=== PATIENT | male | born 1995 | race Caucasian/White ===

== ENCOUNTER → 2020-08-13 | Outpatient (CLI) | payer OTHER ==
--- NOTE | 2020-08-14 18:44 | REPVR ---
PROCEDURE INFORMATION: Exam: MR Head Without Contrast Exam date and time: 08/13/2020 2:32 PM Age: 24 years old Clinical indication: Pain; Headache not specified; Additional info: Personal history of traumatic brain injury TECHNIQUE: Imaging protocol: MR of the head without contrast. COMPARISON: CT Head without contrast 09/05/2013 6:04 PM FINDINGS: No abnormal restriction of diffusion to indicate acute CVA. Midline structures and cerebellar tonsillar position appear normal. Ventricles, cisterns and sulci are symmetric and normal for age. No intracranial mass, midline shift or abnormal extra-axial fluid. No acute intracranial hemorrhage. No abnormal white matter signal on FLAIR and T2 sequences. Optic chiasm and pituitary infundibulum appear normal. Normal vascular flow voids in major intracranial arteries and dural venous sinuses. Paranasal sinuses are normally aerated. Mastoid air cells are normally aerated. Optic globes and orbits are unremarkable. IMPRESSION: Unremarkable noncontrast MRI of the brain. Electronically signed by: Yakov Choudhary On 08/14/2020 18:44:24 PM
== END ==
LOC: M RAD 13:43
PROVIDERS: ATTEND Physician Assistant
DX: Z87.820 Personal history of traumatic brain injury (principal)

== ENCOUNTER → 2020-09-16 | Outpatient (CLI) | payer OTHER ==
--- NOTE | 2020-09-19 13:04 | SLEEPHOME ---
DATE: 09/16/2020 ORDERED BY: MENG [facility] home sleep testing was performed due to concern for the obstructive sleep apnea syndrome. For testing, a nocturnal T3 respiratory monitoring device was used. Continuous record was made of pulse, oxygen saturation, air flow, chest and abdominal strain, and body position. Nine hours and 59 minutes of data were reviewed. There were 7 hours and 32 minutes marked as time in bed. During the interval marked time in bed, there were 52 respiratory events identified of 10 seconds in duration or greater for a respiratory event index of 6.9. The events were primarily obstructive. However 14 mixed and central apneas were also seen. Baseline pulse rate was 67. Pulse rate ranged 46 to 178. Baseline saturation was 97%. Saturations fell to 87%. Testing was performed in both the supine and nonsupine positions. IMPRESSION: Abnormal home sleep testing with repetitive respiratory events and oxygen desaturations to 87% with a respiratory event index of 6.9 is consistent with the obstructive sleep apnea syndrome. RECOMMENDATION: The patient should be encouraged to undergo a formal sleep evaluation.
== END ==
LOC: M SLEEP HO 09:58
PROVIDERS: ATTEND Physician Assistant
DX: G47.33 Obstructive sleep apnea (adult) (pediatric) (principal); G47.31 Primary central sleep apnea

== ENCOUNTER → 2020-10-31 | Outpatient (CLI) | payer OTHER | LOC: M SLEEP 20:00 | PROVIDERS: ATTEND Internal Medicine Pulmonary Disease | DX: R06.83 Snoring (principal) ==

== ENCOUNTER → 2020-11-25 | Outpatient (REF) | payer OTHER ==
[2020-11-25 18:35] LABS: APPEARANCE, URINE CLEAR (CLEAR); BACTERIA, URINE AUTO NEGATIVE (NEGATIVE); BILIRUBIN, URINE AUTO NEGATIVE (NEGATIVE); BLOOD, URINE BLOOD NEGATIVE (NEGATIVE); COLOR, URINE COLORLESS (YELLOW); GLUCOSE, URINE (UA) AUTO NEGATIVE (NEGATIVE); KETONE, URINE AUTO NEGATIVE (NEGATIVE); LEUKOCYTE ESTERASE, URINE AUTO NEGATIVE (NEGATIVE); NITRITE, URINE AUTO NEGATIVE (NEGATIVE); PROTEIN, URINE AUTO NEGATIVE (NEGATIVE); RBC, URINE AUTO 0 /HPF (0-3); SPECIFIC GRAVITY URINE AUTO 1.004 (1.002-1.035); SQUAMOUS EPITHELIAL CELL UR AU 0 /HPF (0-6); UROBILINOGEN, URINE AUTO 0.2 mg/dL (0.0-2.0); WBC, URINE AUTO 0 /HPF (0-3)
== END ==
LOC: M SMT 17:37
PROVIDERS: ATTEND Urology
DX: R39.198 Other difficulties with micturition (principal)

== ENCOUNTER → 2021-02-10 | Outpatient (CLI) | payer OTHER | LOC: M LABSMTC 11:33 | PROVIDERS: ATTEND Anesthesiology | DX: Z01.812 Encounter for preprocedural laboratory examination (principal) ==

== ENCOUNTER 2021-02-15 06:01 | Day surgery (SDC) | payer OTHER ==
[~2021-02-15] VITALS: Ht 175.3 cm; Wt 88.5 kg
[~2021-02-15 06:01] MED LIST: LR 1,000 ML IV ONE; LevoFLOXacin IV 500 MG in IV 1 EA IV ONE
--- OUTSIDE RECORDS SUMMARY | 2021-02-15 06:04 | CCD | Continuity of Care Document ---
Author Author Avelino THOMPSON N.P. Organization Unknown Address [address] [place] [address] Phone [phone] Care Team Providers Care Barrel Drainer Name Role Phone AUTM Unavailable Adan Coyle AUTM [phone] AUTM Unavailable Problems Active Problems Provider Date Hematoma of musa Villa MD Onset: 05/12/2012 Allergic asthma without status asthmaticus Leigha knox M.D. Onset: 03/10/2012 Gastroesophageal reflux disease Daniel Lux Onset: 03/10/2012 Difficulty breathing Leigha Ramsey M.D. Onset: Cough Leigha Ramsey M.D. Onset: 12/2011 Social History Type Date Description Comments Sex Unknown ETOH Use Currently consumes alcohol 15-20 PER WEEK Tobacco Use Start: Unknown Patient is a current smoker, smo kes some days SOCIAL WHEN DRINKING Recreational Drug Use Regular[facility] Smoking Status Reviewed: 02/10/21 Patient is a current smoker, smokes some days SOCIAL WHEN DRINKING Allergies and adverse reactions Active Allergies Criticality Reaction | Severity Comments Date Penicillin Unable to assess criticality rash 03/10/2012 Cephalosporins Unable to assess criticality Anaphylaxis 03/10/2012 Zithromax Unable to assess criticality Allergic asthma 03/10/2012 Amoxicillin Unable to assess criticality RASH 01/20/2020 Medications Active Medications SIG Qnty Indications Ordering Provide r Date Symbicort 160-4.5mcg/Act Aerosol 2 puff twice a day. Use with spacer 10.200gm Gilles Chacon MD 10/18/2020 Proventil HFA 108(90Base) mcg/Act Aerosol 2 puffs q4h prn with spacer 6.700gm Gilles Chacon MD 10/18/2020 Hydroxyzine HCL 10mg/5ML Syrup as needed Unknown Immunizations CPT Code Status Date Vaccine Lot # [id number] Given 01/09/2012 Influenza Virus Split 3 Yrs And Above For Intramuscular Use Vital Signs Date Vital Result Comment 02/10/2021 7:14am BP Systolic 116 mmHg BP Diastolic 72 mmHg Heart Rate 86 /min O2 % BldC Oximetry 98 % Height 68.5 inches 5'8.50" Weight 193.38 lb BMI (Body Mass Index) 29.0 kg/m2 [place] Body Weight 154 lb Weight 87.715 kg BSA (Body Surface Area) 2.03 m2 10/18/2020 10:11am BP Systolic 120 mmHg BP Diastolic 70 mmHg Heart Rate 80 /min O2 % BldC Oximetry 97 % Room Air Height 68.5 inches 5'8.50" Weight 185.00 lb BMI (Body Mass Index) 27.7 kg/m2 [place] Body Weight 154 lb Weight 83.916 kg BSA (Body Surface Area) 1.99 m2 Results Description No Information Available Procedures Date Code Description Status 02/10/2021 79284 Office/Outpatient Established Mo d MDM 30-39 Min Completed 11/11/2020 23711 Diffusing Capacity Completed 11/11/2020 73958 Plethysmography Determination Chasidy ng Volumes & Per Airway Resist Completed 11/11/2020 08263 Bronchospasm Evaluation Complete d 10/18/2020 26102 Office/Outpatient New Moderate M DM 45-59 Minutes Completed Medical Devices Description No Information Available Encounters Type Date Location Provider Dx Diagnosis Office Visit 02/10/2021 7:15a [facility] Tien Thompson, N.P. J45.30 Mild persistent asthma, uncomplicated G47.33 Obstructive sleep apnea (magi lt) (pediatric) Z91.19 Patient's noncompliance w ot h medical treatment and regimen Office Visit 10/18/2020 10:00a [facility] Tyrell Chacon MD G47.33 Obstructive sleep apnea (adult) (pediatr ic) J45.30 Mild persistent asthma, unco mplicated Assessments Date Code Description Provider 02/10/2021 J45.30 Mild persistent asthma, uncompli cated Clare Thompson, N.P. 02/10/2021 G47.33 Obstructive sleep apnea (adult) (pediatric) Clare Thompson N.PXiomy 02/10/2021 Z91.19 Patient's noncomplia nce with other medical treatment and regimen Clare Thompson N.P. 11/11/2020 J45.30 Mild persistent asthma, uncompli cated Pulmonary Lab 10/18/2020 G47.33 Obstructive sleep apnea (adult) (pediatric) Gilles Chacon MD 10/18/2020 J45.30 Mild persistent asthma, uncompli cated Gilles Chacon MD Plan of Treatment Future Appointment(s):* 04/13/2021 2:30 pm - Gilles Chacon MD at [facility] 02/10/2021 - Clare Thompson, N.P.* J45.30 Mild persistent asthma, uncomplicated * G47.33 Obstructive sleep apnea (adult) (pediatric) * Z91.19 Patient's noncompliance with other medical treatment and regimen * * New Labs:* FVL/Otto, Scheduled: 04/13/21 * Follow up:* 1. Follow up in 6-8 weeks time with fvl/spirometry. 30 MINUTE SLOT Functional Status Description No Information Available Mental Status Description No Information Available Referrals Refer to Dr Reason for Referral Status Appt Date Gilles Chacon M.D. PER [facility] [id number] [place] 10/31/[address] [place] [address] [phone] Gilles Chacon M.D. + HST Scheduled [address] [id number] [phone]
--- OUTSIDE RECORDS SUMMARY | 2021-02-15 06:05 | CCD | Continuity of Care Document ---
Author Author Avelino EL Organization Unknown Address [place] [address] Phone [phone] Care Team Providers Care Livestock Breeder Name Role Phone Jennifer Valdovinos D.O. AUTM [phone] Gilles Chacon MD AUTM [phone] Kenneth Colin MD AUTM [phone] Problems Active Problems Provider Date Generalized anxiety disorder MENG Pearson Onset: 07/30 Social History Type Date Description Comments Sex Unknown ETOH Use Currently consumes alcohol 1-2 e very other day, 10 per week Tobacco Use Start: Unknown Patient has never smoked Recreational Drug Use Denies Drug Use Exercise Type/Frequency Exercises regularly Sun Exposure Uses sunscreen Seat Belt/Car Seat Always uses seat belt Allergies and adverse reactions Active Allergies Criticality Reaction | Severity Comments Date Penicillin Unable to assess criticality Hives, Swel ling of eyelid, Tongue swelling 07/25/2020 Cephalosporins Unable to assess criticality Hives 07/25/2020 Zithromax Unable to assess criticality Hives 07/25/2020 Medications Active Medications SIG Qnty Indications Ordering Provide r Date Epinephrine 0.3mg/0. 3ML Solution Auto-Inject use as directed for anaphylaxis reaction 2units Z91.030 Jennifer Valdovinos D.OXiomy 10/13/2020 Hydroxyzine HCL 10mg Tablets 1 tab by mouth three times a day as needed for anxiety Un known Sildenafil Citrate 100mg Tablets take one tablet by mouth one hour prior to sexual activity 6tabs Jennifer Valdovinos D.OXiomy Immunizations Description No Information Available Vital Signs Date Vital Result Comment 10/13/2020 9:07am BP Systolic 132 mmHg BP Diastolic 70 mmHg Height 69.6 inches 5'9.60" Weight 184.00 lb BMI (Body Mass Index) 26.7 kg/m2 Heart Rate 74 /min Respiratory Rate 18 /min Body Temperature 97.2 F O2 % BldC Oximetry 99 % [place] Body Weight 160 lb 08/10/2020 9:54am BP Systolic 134 mmHg BP Diastolic 76 mmHg Height 69.6 inches 5'9.60" Weight 186.25 lb BMI (Body Mass Index) 27.0 kg/m2 Heart Rate 93 /min Respiratory Rate 18 /min Body Temperature 98.3 F O2 % BldC Oximetry 96 % [place] Body Weight 160 lb Results Test Acquired Date Facility Test Result H/L Range Note Coronavirus 2019 Nasopharygeal 02/10/2021 [facility] Outpa tient Testing (Registration) [address] [place] [address] [phone] Coronavirus 2019 Nasopharygeal ASSAY INFORMATIO <SEE N OTE> 1 1 ASSAY INFORMATION: Real Time RT-PCR NOTE: The COVID-19 assay has been cleared by the U.S. Food and Drug Administration under the Emergency Use Authorization (EUA). [facility] and [email or web address] are designated as high complexity laboratories by the Clinical Laboratory Improvement Amendments of 1988(CLIA) and are qualified to perform this test. Not Detected Procedures Date Code Description Status 10/13/2020 52394 Office/Outpatient Established Mo d MDM 30-39 Min Completed Medical Devices Description No Information Available Encounters Type Date Location Provider Dx Diagnosis Office Visit 10/13/2020 9:00a [facility] MENG Pearson F41.1 Generalized anxiety disorder R06.83 Snoring Z91.030 Bee allergy status R39.13 Splitting of urinary stream Assessments Date Code Description Provider 10/13/2020 F41.1 Generalized anxiety disorder Gallo MENG Frias 10/13/2020 R06.83 Snoring MENG Pearson 10/13/2020 Z91.030 Bee allergy status MENG Hammond 10/13/2020 R39.13 Splitting of urinary stream Bayron MENG Olea Plan of Treatment Future Appointment(s):* 04/12/2021 9:40 am - MENG Pearson at [facility] Functional Status Description No Information Available Mental Status Description No Information Available Referrals Refer to Dr Reason for Referral Status Appt Date Kenneth Colin MD has incomplete empty ing, splitting of urinary stream, slight dribbling, and ED issues. Sent 11/04/2020 [address] [place] [facility] [address] [place], [place] [id number] [phone] Gilles Chacon MD Tristan has hypersomnia, mil d sleep apnea and snoring. Home Sleep study with AHI of 6. Snoring 22%. Please evaluate and treat. Closed [facility] [address] [place], [place] [id number] [phone]
--- OUTSIDE RECORDS SUMMARY | 2021-02-15 06:05 | CCD ---
Author Author [facility] Organization [facility] Address Unknown Phone Unavailable Care Team Providers Care Patient Monitor Name Role Phone Abraham DIAZ MD Unavailable Unavailable Abraham DIAZ MD Unavailable Unavailable Abraham DIAZ MD Unavailable Unavailable Abraham DIAZ MD Unavailable Unavailable Abraham DIAZ MD Unavailable Unavailable Abraham DIAZ MD Unavailable Unavailable Abraham DIAZ MD Unavailable Unavailable Abraham DIAZ MD Unavailable Unavailable Abraham DIAZ MD Unavailable Unavailable Abraham DIAZ MD Unavailable Unavailable Abraham DIAZ MD Unavailable Unavailable Abraham DIAZ MD Unavailable Unavailable Abraham DIAZ MD Unavailable Unavailable Abraham DIAZ MD Unavailable Unavailable Abraham DIAZ MD Unavailable Unavailable Abraham DIAZ MD Unavailable Unavailable Abraham DIAZ MD Unavailable Unavailable Abraham DIAZ MD Unavailable Unavailable Abraham DIAZ MD Unavailable Unavailable Abraham DIAZ MD Unavailable Unavailable Abraham DIAZ MD Unavailable Unavailable Abraham DIAZ MD Unavailable Unavailable Abraham DIAZ MD Unavailable Unavailable Abraham DIAZ MD Unavailable Unavailable Abraham DIAZ MD Unavailable Unavailable Abraham DIAZ MD Unavailable Unavailable Abraham DIAZ MD Unavailable Unavailable Abraham DIAZ MD Unavailable Unavailable Abraham DIAZ MD Unavailable Unavailable Abraham DIAZ MD Unavailable Unavailable Abraham DIAZ MD Unavailable Unavailable Abraham DIAZ MD Unavailable Unavailable Abraham DIAZ MD Unavailable Unavailable Abraham DIAZ MD Unavailable Unavailable Abraham DIAZ MD Unavailable Unavailable Abraham DIAZ MD Unavailable Unavailable Abraham DIAZ MD Unavailable Unavailable Abraham DIAZ MD Unavailable Unavailable Abraham DIAZ MD Unavailable Unavailable Abraham DIAZ MD Unavailable Unavailable Abraham DIAZ MD Unavailable Unavailable PORTILLO, SABINA JOSE CLOTH BEAMER-C Unavailable Unavailable PORTILLO, SABINA JOSE CLOTH BEAMER-C Unavailable Unavailable PORTILLO, SABINA JOSE CLOTH BEAMER-C Unavailable Unavailable PORTILLO, SABINA JOSE CLOTH BEAMER-C Unavailable Unavailable PORTILLO, SABINA JOSE CLOTH BEAMER-C Unavailable Unavailable PORTILLO, SABINA JOSE CLOTH BEAMER-C Unavailable Unavailable PORTILLO, SABINA JOSE CLOTH BEAMER-C Unavailable Unavailable PORTILLO, SABINA JOSE CLOTH BEAMER-C Unavailable Unavailable PORTILLO, SABINA JOSE CLOTH BEAMER-C Unavailable Unavailable PORTILLO, SABINA JOSE CLOTH BEAMER-C Unavailable Unavailable PORTILLO, SABINA JOSE CLOTH BEAMER-C Unavailable Unavailable PORTILLO, SABINA JOES CLOTH BEAMER-C Unavailable Unavailable PORTILLO, SABINA JOSE CLOTH BEAMER-C Unavailable Unavailable PORTILLO, SABINA JOSE CLOTH BEAMER-C Unavailable Unavailable PORTILLO, SABINA JOSE CLOTH BEAMER-C Unavailable Unavailable PORTILLO, SABINA JOSE CLOTH BEAMER-C Unavailable Unavailable PORTILLO, SABINA JOSE CLOTH BEAMER-C Unavailable Unavailable O'elsy, A Adan PA Unavailable Unavailable O'elsy, A Adan PA Unavailable Unavailable O'elsy, A Adan PA Unavailable Unavailable O'elsy, A Adan PA Unavailable Unavailable O'elsy, A Adan PA Unavailable Unavailable O'elsy, A Adan PA Unavailable Unavailable O'elsy, A Adan PA Unavailable Unavailable O'elsy, A Adan PA Unavailable Unavailable O'elys, A Adan PA Unavailable Unavailable O'elsy, A Adan PA Unavailable Unavailable O'elsy, A Adan PA Unavailable Unavailable O'elsy, A Adan PA Unavailable Unavailable O'elsy, A Adan PA Unavailable Unavailable O'elsy, A Adan PA Unavailable Unavailable O'elsy, A Adan PA Unavailable Unavailable O'elsy, A Adan PA Unavailable Unavailable O'elsy, A Adan PA Unavailable Unavailable O'elsy, A Adan PA Unavailable Unavailable O'elsy, A Adan PA Unavailable Unavailable O'elsy, A Adan PA Unavailable Unavailable O'elsy, A Adan PA Unavailable Unavailable O'elsy, A Adan PA Unavailable Unavailable O'elsy, A Adan PA Unavailable Unavailable O'elsy, A Adan PA Unavailable Unavailable O'elsy, A Adan PA Unavailable Unavailable O'elsy, A Adan PA Unavailable Unavailable O'elsy, A Adan PA Unavailable Unavailable O'elsy, A Adan PA Unavailable Unavailable O'elsy, A Adan PA Unavailable Unavailable O'elsy, A Adan PA Unavailable Unavailable O'elsy, A Adan PA Unavailable Unavailable O'elsy, A Adan PA Unavailable Unavailable O'elsy, A Adan PA Unavailable Unavailable Abraham DIAZ MD Unavailable Unavailable Abraham DIAZ MD Unavailable Unavailable Abraham DIAZ MD Unavailable Unavailable Abraham DIAZ MD Unavailable Unavailable Abraham DIAZ MD Unavailable Unavailable Abraham DIAZ MD Unavailable Unavailable Abraham DIAZ MD Unavailable Unavailable Abraham DIAZ MD Unavailable Unavailable Abraham DIAZ MD Unavailable Unavailable Abraham DIAZ MD Unavailable Unavailable Abraham DIAZ MD Unavailable Unavailable Abraham DIAZ MD Unavailable Unavailable Abraham DIAZ MD Unavailable Unavailable Abraham DIAZ MD Unavailable Unavailable Abraham DIAZ MD Unavailable Unavailable Abraham DIAZ MD Unavailable Unavailable Abraham DIAZ MD Unavailable Unavailable Abraham DIAZ MD Unavailable Unavailable Abraham DIAZ MD Unavailable Unavailable Abraham DIAZ MD Unavailable Unavailable Abraham DIZA MD Unavailable Unavailable Abraham DIAZ MD Unavailable Unavailable Abraham DIAZ MD Unavailable Unavailable Abraham DIAZ MD Unavailable Unavailable Abraham DIAZ MD Unavailable Unavailable Abraham DIAZ MD Unavailable Unavailable Abraham DIAZ MD Unavailable Unavailable Abraham DIAZ MD Unavailable Unavailable Abraham DIAZ MD Unavailable Unavailable Abraham DIAZ MD Unavailable Unavailable Abraham DIAZ MD Unavailable Unavailable Abraham DIAZ MD Unavailable Unavailable Abraham DIAZ MD Unavailable Unavailable Abraham DIAZ MD Unavailable Unavailable Abraham DIAZ MD Unavailable Unavailable Abraham DIAZ MD Unavailable Unavailable Abraham DIAZ MD Unavailable Unavailable Abraham DIAZ MD Unavailable Unavailable bAraham DIAZ MD Unavailable Unavailable Abraham DIAZ MD Unavailable Unavailable Abraham DIAZ MD Unavailable Unavailable Richard Chacon MD Unavailable Unavailable Richard Chacon MD Unavailable Unavailable Richard Chacon MD Unavailable Unavailable Richard Chacon MD Unavailable Unavailable Richard Chacon MD Unavailable Unavailable Richard Chacon MD Unavailable Unavailable Richard Chacon MD Unavailable Unavailable Richard Chacon MD Unavailable Unavailable Richard Chacon MD Unavailable Unavailable Richard Chacon MD Unavailable Unavailable Richard Chacon MD Unavailable Unavailable Richard Chacon MD Unavailable Unavailable Richard Chacon MD Unavailable Unavailable Richard Chacon MD Unavailable Unavailable Richard Chacon MD Unavailable Unavailable Richard Chacon MD Unavailable Unavailable Richard Chacon MD Unavailable Unavailable Richard Chacon MD Unavailable Unavailable Richard Chacon MD Unavailable Unavailable Richard Chacon MD Unavailable Unavailable Richard Chacon MD Unavailable Unavailable Richard Chacon MD Unavailable Unavailable Richard Chacon MD Unavailable Unavailable Richard Chacon MD Unavailable Unavailable Richard Chacon MD Unavailable Unavailable Richard Chacon MD Unavailable Unavailable Richard Chacon MD Unavailable Unavailable Richard Chacon MD Unavailable Unavailable Richard Chacon MD Unavailable Unavailable Richard Chacon MD Unavailable Unavailable Richard Chacon MD Unavailable Unavailable Richard Chacon MD Unavailable Unavailable Richard Chacon MD Unavailable Unavailable Richard Chacon MD Unavailable Unavailable Richard Chacon MD Unavailable Unavailable Richard Chacon MD Unavailable Unavailable Richard Chacon MD Unavailable Unavailable Richard Chacon MD Unavailable Unavailable Richard Chacon MD Unavailable Unavailable Richard Chacon MD Unavailable Unavailable Richard Chacon MD Unavailable Unavailable Richard Chacon MD Unavailable Unavailable Richard Chacon MD Unavailable Unavailable Richard Chacon MD Unavailable Unavailable Richard Chacon MD Unavailable Unavailable Richard Chacon MD Unavailable Unavailable Richard Chacon MD Unavailable Unavailable Richard Chacon MD Unavailable Unavailable Richard Chacon MD Unavailable Unavailable Richard Chacon MD Unavailable Unavailable Richard Chacon MD Unavailable Unavailable Richard Chacon MD Unavailable Unavailable Richard Chacon MD Unavailable Unavailable Richard Chacon MD Unavailable Unavailable DESJARLAIS, ESHA CONTACT LENS CURVE GRINDER Unavailable Unavailable DESJARLAIS, ESHA CONTACT LENS CURVE GRINDER Unavailable Unavailable DESJARLAIS, ESHA CONTACT LENS CURVE GRINDER Unavailable Unavailable DESJARLAIS, ESHA CONTACT LENS CURVE GRINDER Unavailable Unavailable DESJARLAIS, ESHA CONTACT LENS CURVE GRINDER Unavailable Unavailable DESJARLAIS, ESHA CONTACT LENS CURVE GRINDER Unavailable Unavailable DESJARLAIS, ESHA CONTACT LENS CURVE GRINDER Unavailable Unavailable DESJARLAIS, ESHA CONTACT LENS CURVE GRINDER Unavailable Unavailable DESJARLAIS, ESHA CONTACT LENS CURVE GRINDER Unavailable Unavailable DESJARLAIS, ESHA CONTACT LENS CURVE GRINDER Unavailable Unavailable HICKEYGISELE Unavailable Unavailable Re-disclosure Warning The records that you are about to access may contain information from federally-assisted alcohol or drug abuse programs. If such information is present, then the following federally mandated warning applies: This information has been disclosed to you from records protected by federal confidentiality rules (42 CFR part 2). The federal rules prohibit you from making any further disclosure of this information unless further disclosure is expressly permitted by the written consent of the person to whom it pertains or as otherwise permitted by 42 CFR part 2. A general authorization for the release of medical or other information is NOT sufficient for this purpose. The Federal rules restrict any use of the information to criminally investigate or prosecute any alcohol or drug abuse patient.The records that you are about to access may contain highly sensitive health information, the redisclosure of which is protected by Article 27-F of the [facility] Public Health law. If you continue you may have access to information: Regarding HIV / AIDS; Provided by facilities licensed or operated by the [facility] Office of Mental Health; or Provided by the [facility] Office for People With Developmental Disabilities. If such information is present, then the following [facility] mandated warning applies: This information has been disclosed to you from confidential records which are protected by state law. State law prohibits you from making any further disclosure of this information without the specific written consent of the person to whom it pertains, or as otherwise permitted by law. Any unauthorized further disclosure in violation of state law may result in a fine or penitentiary sentence or both. A general authorization for the release of medical or other information is NOT sufficient authorization for further disc losure. Encounters Encounter Providers Location Date Indications Data Source(s ) Outpatient Attender: JOSE Steiner/Brandie/Bernarda smith 02/10/2021 06:15:00 AM EST [facility] ([facility], ) Outpatient Attender: ABHILASH DIAZ MD [facility] 02/08/2021 10 :07:00 AM [facility] Outpatient Attender: ABHILASH DIAZ MD EM[facility] 02/07/2021 03:37:00 PM EST - 02/07/2021 03:37:00 PM [facility]ital Outpatient [address] [place] [address] 11/25/2020 12:00:00 AM EDT eCW1 ([facility]) Outpatient Attender: Gilles Steiner/Brandie/Jorgito/Shu smith 10/18/2020 10:00:00 AM EDT [facility] ([facility]) Outpatient Attender: Adan FAN [facility] 10/13/2020 09:00:00 AM EDT MEDENT ([facility]) Outpatient Attender: Adan FAN [facility] 08/10/2020 09:00:00 AM EDT MEDENT ([facility]) Outpatient Attender: ESHA WILLSON NP 07/20/2020 10: 40:00 AM [facility] Outpatient Attender: GISELE PELAYO 05/03/2020 10:52:00 AM [facility] Immunizations Vaccine Date Status Description Data Source(s) COVID-19 VACCINE [facility] 04/26/2020 12:00:00 AM EST completed [facility] Vaccine Series Complete: YESThis Data wa s Submitted to [facility] Via [employer]. COVID-19 VACCINE [facility] 04/05/2020 12:00:00 AM EST completed [facility] Vaccine Series Complete: NOThis Data was Submitted to [facility] Via [employer]. Medications Medication Brand Name Start Date Product Form Dose Route Admi nistrative Instructions Pharmacy Instructions Status Indications Reaction Description Data Source(s) 10 mg 01/27/2021 12:00:00 AM EDT tablet 5 TAKE ONE TABLET BY MOUTH EVERY DAY NEEDED 1 HOUR PRIOR TO INTERCOURSE TAKE ONE TABLET BY MOUTH EVERY DAY NEEDED 1 HOUR PRIOR TO INTERCOURSE SOLD: 01/31/2021 [facility] 100 mg 01/20/2021 12:00:00 AM EDT tablet 4 TAKE ONE TABLET BY MOUTH NEEDED 1 HOUR PRIOR TO SEXUAL ACTIVITY TAKE ONE TABLET BY MOUTH NEEDED 1 DAJUAN R PRIOR TO SEXUAL ACTIVITY SOLD: 01/23/2021 [facility] tadalafil 10 MG Oral Tablet [Cialis] Cialis 10 MG Cialis 10 MG 11/25/2020 12:00:00 AM EDT 1.0 {tablet} active Ci trudy 10 MG eCW1 ([facility]) 90 mcg/actuation 10/18/2020 12:00:00 AM EDT HFA aerosol inha ler 8 INHALE 2 PUFFS BY MOUTH EVERY 4 HOURS NEEDED WITH SPACER INHALE 2 PUFFS BY MOUTH EVERY 4 HOURS NEEDED WITH SPACER SOLD: 10/21/2020 [facility] 60 ACTUAT Budesonide 0.16 MG/ACTUAT / fo rmoterol fumarate 0.0045 MG/ACTUAT Metered Dose Inhaler [Symbicort] Symbicort 10/18/2020 12:00:00 AM EDT RESPIRATORY active MEDENT ( [facility], ) 200 ACTUAT Albuterol 0.09 MG/ACTUAT Metered Dose Inhal er [Proventil] Proventil HFA 10/18/2020 12:00:00 AM EDT RESPIRATORY active MED[facility] ([facility], ) 160-4.5 mcg/actuation 10/18/2020 12:00:00 AM EDT HFA aerosol inhaler 10 INHALE 2 PUFFS BY MOUTH TWO TIMES A DAY USE WITH SPACER INHALE 2 PUFFS BY MOUTH TWO TIMES A DAY USE WITH SPACER SOLD: 12/08/2020 [facility] 160-4.5 mcg/actuation 10/18/2020 12:00:00 AM EDT HFA aerosol inhaler 10 INHALE 2 PUFFS BY MOUTH TWO TIMES A DAY USE WITH SPACER INHALE 2 PUFFS BY MOUTH TWO TIMES A DAY USE WITH SPACER SOLD: 10/21/2020 [facility] [id number] 0.3 ML Epinephrine 1 MG/ML Auto-Injector EPINEPHRI NE 10/13/2020 12:00:00 AM EDT auto-injector 2 USE DIRECTED FOR ANAP HYLAXIS REACTION USE DIRECTED FOR ANAPHYLAXIS REACTION SOLD: 10/21/2020 [facility] Epinephrine Epinephrine 10/13/2020 12:00:00 AM EDT active MEDENT ([facility]) 100 mg 09/19/2020 12:00:00 AM EDT tablet 4 TAKE ONE TABLET BY MOUTH ONE HOUR PRIOR TO SEXUAL ACTIVITY TAKE ONE TABLET BY MOUTH ONE HOUR PRIOR TO SEXUAL ACTIVITY SOLD: 09/23/2020 [facility] 5 mg 08/11/2020 12:00:00 AM EDT tablet 2 TAKE 1 TABLET BY MOUTH ONCE THE NIGHT BEFORE MRI AND TAKE 1 TABLET 1 HOUR PRIOR TO MRI MAXIMUM DAILY DOSE = 2 TABLETS TAKE 1 TABLET BY MOUTH ONCE THE NIGHT BE FORE MRI AND TAKE 1 TABLET 1 HOUR PRIOR TO MRI MAXIMUM DAILY DOSE = 2 TABLETS SOLD: 08/12/2020 [facility] Diazepam 5 MG Oral Tablet Diazepam 08/11/2020 12:00:00 AM EDT ORAL completed MEDENT ([facility]) [facility] 08/10/2020 12:00:00 AM EDT ORAL c ompleted MEDENT ([facility]) [facility] Home Sleep Study 08/10/2020 12:00:00 AM EDT completed MEDENT ([facility]) 10 mg 07/20/2020 12:00:00 AM EDT tablet 90 TAKE 1 TABLET BY MOUTH EVERY 8 HOURS NEEDED TAKE 1 TABLET BY MOUTH EVERY 8 HOURS NEEDED SOLD: 021 [facility] 2.5 % 01/16/2020 12:00:00 AM EDT cream with perineal marlee licator 30 APPLY RECTALLY THREE TIMES A DAY APPLY RECTALLY THREE TIMES A DAY SOLD: 01/18/2020 [facility] 2.5 % 01/16/2020 12:00:00 AM EDT cream with perineal marlee licator 84 APPLY RECTALLY THREE TIMES A DAY APPLY RECTALLY THREE TIMES A DAY SOLD: 03/31/2020 [facility] Insurance Providers Payer name Policy type / Coverage type Policy ID Covered alliance party ID Covered alliance party's relationship to liriano Policy Liriano Plan Information [facility] Health Maintenance Organization ([facility]) [id number] Family Dependent [id number] [facility] Health Maintenance Organization ([facility]) [id number] Family Dependent [facility] P [id number] S [id number] [facility] [id number] FA2 [id number] [facility] [id number] FA2 80 [id number] [employer] [place] PPO [id number] FA2 [id number] [facility] PHY [id number] SP [id number] [facility] PHY [id number] SP [id number] [facility] P [id number] S [id number] [employer] [id number] FA2 [id number] [facility] [id number] SP [id number] [facility] [id number] S [id number] [facility] [id number] S [id number] [facility] [id number] SP [id number] Problems, Conditions, and Diagnoses Code Display Name Description Problem Type Effective Dates Data Source(s) N39.0 Urinary tract infection, site not specif ied URINARY TRACT INFECTION, SITE NOT SPECIF Diagnosis 02/07/2021 03:37:00 PM [facility] Z01.818 Encounter for other preprocedural examin ation ENCOUNTER FOR OTHER PREPROCEDURAL EXAMIN Diagnosis 02/07/2021 03:37:00 PM [facility] Z87.448 Personal history of other diseases of ur inary system PERSONAL HISTORY OF OTHER DISEASES OF UR Diagnosis 02/07/2021 03:37:00 PM [facility] R39.198 OTHER DIFFICULTIES WITH MICTURITION OTHER DIFFIC ULTIES WITH MICTURITION Diagnosis 02/07/2021 03:37:00 PM [facility] F32.9 Major depressive disorder, single episod e, unspecified MAJOR DEPRESSIVE DISORDER, SINGLE EPISODE, UNSPECI Diagnosis 07/20/2020 10:40:00 AM [facility] F41.9 Anxiety disorder, unspecified ANXIETY DISORDER, UNSPEC IFIED Diagnosis 07/20/2020 10:40:00 AM [facility] N52.9 Erectile dysfunction Erectile dysfunction Problem 11/25/2020 12:00:00 AM EDT eCW1 ([facility]) R39.198 Other difficulties with micturition Urine stream spray ing Problem 11/25/2020 12:00:00 AM EDT eCW1 ([facility]) F41.1 Generalized anxiety disorder Generalized anxiety disor matias Problem 08/10/2020 12:00:00 AM EDT MEDENT ([facility]) Surgeries/Procedures Procedure Description Date Indications Data Source(s) OFFICE OUTPATIENT VISIT 25 MINUTES 02/10/2021 12:00:00 AM EST MED[facility] ([facility], ) Bronchospasm Evaluation 11/11/2020 12:00:00 AM EDT MED[facility] ([facility]) Plethysmography Determination Lung Volumes & Per Airway Resi st 11/11/2020 12:00:00 AM EDT MEDENT ([facility], ) DIFFUSING CAPACITY 11/11/2020 12:00:00 AM EDT MEDENT ([facility]) OFFICE OUTPATIENT NEW 45 MINUTES 10/18/2020 12:00:00 A M EDT MEDENT ([facility]) OFFICE OUTPATIENT VISIT 25 MINUTES 10/13/2020 12:00:00 AM EDT MEDENT ([facility]) OFFICE OUTPATIENT NEW 45 MINUTES 08/10/2020 12:00:00 A M EDT MEDENT ([facility]) Results ID Date Data Source [id number] 02/10/2021 10:15:00 AM EST MED[facility] ([facility]) Name Value Range Interpretation Code Description Data Oumou rce(s) Supporting Document(s) Coronavirus 2019 Nasopharygeal Laboratory test result [facility] ([facility]) ASSAY INFORMATION: Real Time RT-PCR NOTE: The COVID-19 assay has been cleared by the U.S. Food and Drug Administration under the Emergency Use Authorization (EUA). [facility] are designated as high complexity laboratories by the Clinical Laboratory Improvement Amendments of 1988(CLIA) and are qualified to perform this test. Not Detected ID Date Data Source [id number] 02/10/2021 02:54:00 PM EST [facility] Name Value Range Interpretation Code Description Data Oumou rce(s) Supporting Document(s) [facility] ID Date Data Source [id number] 02/07/2021 04:40:00 PM EST [facility] [phone] Name Value Range Interpretation Code Description Data [facility](s) Supporting Document(s) GLUCOSE 89 mg/dL 74-106 [facility] BLOOD UREA NITROGEN 20 mg/dL 7-18 [facility] ital CREATININE 1.10 mg/dl 0.70-1.30 [facility] SODIUM 138 mmol/L 136-145 [facility] POTASSIUM 4.6 mmol/L 3.5-5.1 [facility] CHLORIDE 98 mmol/L 98-107 [facility] CO2 30 mmol/L 21-32 [facility] CALCIUM 9.8 mg/dL 8.5-10.1 [facility] ANION GAP 10.0 mmol/L 5-12 [facility] GLOMERULAR FILTRATION RATE 82 mL/min [facility] GFR IS CALCULATED IN mL/min/1.73m2 HERNANDO L FUNCTION: >90MILDLY DECREASED: 60-89MILDY TO MODERATELY DECREASED: 45-59 MODERATELY TO SEVERELY DECREASED: 30-44SEVERELY DECREASED: 15-29RENAL FAILURE: <15 ID Date Data Source [id number] 02/07/2021 03:48:00 PM [facility] FAX [phone] Name Value Range Interpretation Code Description Data [facility](s) Supporting Document(s) WHITE BLOOD COUNT 7.3 K/mm3 4.0-10.0 [facility] al RED BLOOD COUNT 4.90 M/mm3 4.50-6.00 [facility] HEMOGLOBIN 15.0 gm/dL 14.0-18.0 [facility] HEMATOCRIT 42.4 % 42.0-54.0 [facility] MEAN CELL VOLUME 86.5 fl 80-96 [facility] MEAN CORPUSCULAR HEMOGLOBIN 30.6 pg 27.0-31.0 [facility] MEAN CORPUSCULAR HGB CONC 35.4 g/dl 32.0-36.0 [facility] RED CELL DISTRIBUTION WIDTH 11.2 % 10.0-14.5 [facility] PLATELET COUNT 255 K/mm3 172-450 [facility] ID Date Data Source URINE CULTURE 11/25/2020 12:00:00 AM EDT eCW1 ([facility]) Name Value Range Interpretation Code Description Data [facility](s) Supporting Document(s) URINE CULTURE eCW1 ([facility]) ID Date Data Source UA URINALYSIS 11/25/2020 12:00:00 AM EDT eCW1 ([facility]) Name Value Range Interpretation Code Description Data Oumou rce(s) Supporting Document(s) UA URINALYSIS eCW1 ([facility]) ID Date Data Source [id number] 04/26/2020 12:00:00 AM EST [facility] Name Value Range Interpretation Code Description Data Oumou rce(s) Supporting Document(s) SARS-CoV2 Rapid Antigen Negative [facility] This lab was ordered by [facility] and reported by [facility]. ID Date Data Source [id number] 03/21/2020 12:00:00 AM EST [facility] Name Value Range Interpretation Code Description Data Oumou rce(s) Supporting Document(s) SARS coronavirus 2 RNA [Presence] in Res piratory specimen by KIMBERLY with probe detection [facility] This lab was ordered by [facility] and reported by [facility]. ID Date Data Source [id number] 02/26/2020 12:00:00 AM EST [facility] Name Value Range Interpretation Code Description Data Oumou rce(s) Supporting Document(s) SARS-CoV2 Rapid Antigen [facility] This lab was ordered by [facility] and reported by [facility]. ID Date Data Source [id number] 02/22/2020 12:00:00 AM EST [facility] Name Value Range Interpretation Code Description Data Oumou rce(s) Supporting Document(s) SARS coronavirus 2 RNA [Presence] in Res piratory specimen by KIMBERLY with probe detection [facility] This lab was ordered by [facility] and reported by [facility]. Procedure Social History Code Duration Value Status Description Data Source(s ) Smoking 11/25/2020 12:00:00 AM EDT Current Smoker completed Curre nt Smoker eCW1 ([facility]) Vital Signs ID Date Data Source UNK Name Value Range Interpretation Code Description Data Source(s) Systolic blood pressure 116 mm[Hg] 116 mm[Hg] M EDENT ([facility], ) Diastolic blood pressure 72 mm[Hg] 72 mm[Hg] MEDENT ([facility], ) Heart rate 86 /min 86 /min [facility] ([facility], ) Oxygen saturation in Arterial blood by Pulse oximetry 98 % 98 % [facility] ([facility]) Body height 68.5 [in_i] 68.5 [in_i] MEDENT ([facility]) 5'8.50" Body weight 193.38 [lb_av] 193.38 [lb_av] MEDEN T ([facility]) Body mass index (BMI) [Ratio] 29.0 kg/m2 29.0 k g/m2 [facility] ([facility]) [place] body weight 154 [lb_av] 154 [lb_av] MEDEN T ([facility]) Body weight 87.715 kg 87.715 kg [facility] ([facility]) Body surface area Derived from formula 2.03 m2 2.03 m2 [facility] ([facility]) Body temperature 97.7 [degF] 97.7 [degF] eCW1 ( [facility]) Heart rate 90 /min 90 /min eCW1 ([facility]) Systolic blood pressure 11 mm[Hg] 11 mm[Hg] e CW1 ([facility]) Respiratory rate 18 /min 18 /min eCW1 ([facility] Body weight 190 [lb_av] 190 [lb_av] eCW1 ([facility]) Diastolic blood pressure 74 mm[Hg] 74 mm[Hg] eCW1 ([facility]) Body height [in_i] eCW1 ([facility]) Body mass index (BMI) [Ratio] 28.06 kg/m2 28.06 kg/m2 eCW1 ([facility]) Body weight 86.18 kg 86.18 kg eCW1 ([facility]) Diastolic blood pressure 70 mm[Hg] 70 mm[Hg] [facility] ([facility]) Heart rate 80 /min 80 /min [facility] ([facility]) Oxygen saturation in Arterial blood by Pulse oximetry 97 % 97 % [facility] ([facility]) Room Air Body height 68.5 [in_i] 68.5 [in_i] [facility] ([facility]) 5'8.50" Body weight 185.00 [lb_av] 185.00 [lb_av] MEDEN T ([facility]) Body mass index (BMI) [Ratio] 27.7 kg/m2 27.7 k g/m2 [facility] ([facility]) [place] body weight 154 [lb_av] 154 [lb_av] [facility] Body weight 83.916 kg 83.916 kg [facility] ([facility]) Body surface area Derived from formula 1.99 m2 1.99 m2 [facility] ([facility]) Systolic blood pressure 120 mm[Hg] 120 mm[Hg] M [facility] ([facility]) Respiratory rate 18 /min 18 /min [facility] ( [facility]) Systolic blood pressure 132 mm[Hg] 132 mm[Hg] M [facility] ([facility]) Oxygen saturation in Arterial blood by Pulse oximetry 99 % 99 % [facility] ([facility]) Diastolic blood pressure 70 mm[Hg] 70 mm[Hg] [facility] ([facility]) [place] body weight 160 [lb_av] 160 [lb_av] MEDEN T ([facility]) Body height 69.6 [in_i] 69.6 [in_i] [facility] ([facility]) 5'9.60" Body weight 184.00 [lb_av] 184.00 [lb_av] MEDEN T ([facility]) Body mass index (BMI) [Ratio] 26.7 kg/m2 26.7 k g/m2 [facility] ([facility]) Heart rate 74 /min 74 /min [facility] ([facility]) Body temperature 97.2 [degF] 97.2 [degF] [facility] ([facility]) Systolic blood pressure 134 mm[Hg] 134 mm[Hg] [facility]) Heart rate 93 /min 93 /min [facility] ([facility]) Diastolic blood pressure 76 mm[Hg] 76 mm[Hg] [facility] ([facility]) Body height 69.6 [in_i] 69.6 [in_i] [facility] ([facility]) 5'9.60" Respiratory rate 18 /min 18 /min [facility] ( [facility]) Body temperature 98.3 [degF] 98.3 [degF] [facility] ([facility]) Oxygen saturation in Arterial blood by Pulse oximetry 96 % 96 % [facility] ([facility]) [place] body weight 160 [lb_av] 160 [lb_av] MEDEN T ([facility]) Body weight 186.25 [lb_av] 186.25 [lb_av] MEDEN T ([facility]) Body mass index (BMI) [Ratio] 27.0 kg/m2 27.0 k g/m2 [facility] ([facility]) Body height 68.5 [in_i] 68.5 [in_i] [facility] ([facility]) 5'8.50" Body weight 171.00 [lb_av] 171.00 [lb_av] [facility] Body mass index (BMI) [Ratio] 25.6 kg/m2 25.6 k g/m2 [facility] ([facility]) [place] body weight 154 [lb_av] 154 [lb_av] [facility] Body weight 77.566 kg 77.566 kg [facility] ([facility]) [place] body weight 154 [lb_av] 154 [lb_av] [facility] Body mass index (BMI) [Ratio] 25.6 kg/m2 25.6 k g/m2 [facility] ([facility]) Body weight 77.566 kg 77.566 kg [facility] ([facility]) Body surface area Derived from formula 1.92 m2 1.92 m2 [facility] ([facility]) Systolic blood pressure 121 mm[Hg] 121 mm[Hg] [facility] ([facility]) Diastolic blood pressure 73 mm[Hg] 73 mm[Hg] [facility] ([facility]) Body height 68.5 [in_i] 68.5 [in_i] GEORGETTE ([facility], ) 5'8.50" Body weight 171.00 [lb_av] 171.00 [lb_av] TON [place] ([facility], ) Patient Treatment Plan of Care Planned Activity Planned Date Details Description Data Source (s) tadalafil 10 MG Oral Tablet [Cialis] 11/25/2020 12:00:00 AM EDT eCW1 ([facility])
--- OUTSIDE RECORDS SUMMARY | 2021-02-15 06:05 | CCD ---
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 Name Role Phone Kenneth Colin Unavailable PROBLEMS Type Condition ICD9-CM Code STS02-HT Code Onset Dates Condition S tatus W/U Status Risk SNOMED Code Notes Problem Urine stream spraying R39.198 Active confirmed Problem Erectile dysfunction N52.9 Active confirmed 503279937 Problem Urinary frequency 788.41 Active confirmed [id number] ALLERGIES Allergen (clinical drug ingredient) Drug/Non Drug Allergy do cumented on EMR Reaction Allergy Type Onset Date Status Penicillin (For Allergies Use Only) Anaphylaxis Drug Aller gy Active azithromycin Zithromax([facility] Code:[address]-80) Anaphylaxis Drug Aller gy Active Cephalosporin Cephalosporin Anaphylaxis Non Drug Allergy A ctive ENCOUNTERS from 1995 to 2020-11-29 Encounter Location Date Provider Diagnosis [facility] [address] [phone] [place] [address] Oct, Kenneth Colin Urine stream spraying R39.198 and Erecti le dysfunction N52.9 IMMUNIZATIONS No Information SOCIAL HISTORY Tobacco Use: Social History Observation Description Date Details (start date - stop date) Current Smoker Sex Assigned At : Social History Observation Description Sex Assigned At Unknown Tobacco Use: Question Answer Notes Are you a: current smoker REASON FOR REFERRAL No Information VITAL SIGNS Weight 190 lbs Oct, Weight-kg 86.18 kg Oct, Height 5'9" in Oct, BMI 28.06 kg/m2 Oct, Heart Rate 90 /min Oct, Respiratory Rate 18 /min Oct, Temperature 97.7 degrees Fahrenheit Oct, Oximetry 99 Oct, Blood pressure systolic 11 mm Hg Oct, Blood pressure diastolic 74 mm Hg Oct, MEDICATIONS Medication SIG (Take, Route, Frequency, Duration) Notes Start Da te End Date Status Sertraline HCl 150 mg 1 tablet Orally Once a day Not-Taking Cialis 10 MG 1 tablet Orally Once a day as needed Oct, Active Symbicort 80-4.5 MCG/ACT 2 puffs Inhalation Twice a day Active Ventolin HFA 108 (90 Base) MCG/ACT 2 puffs as needed Inhalation zulema ry 4 hrs Active PROCEDURES No Information RESULTS Component Value Reference Range UA URINALYSIS Reviewed date:11/28/2020 17:10:33 Interpretation: Performing Lab:[facility] LABORATORY [address] [id number] , ,[place] [address] URINE CULTURE Reviewed date:11/28/2020 17:10:43 Interpretation: Performing Lab:[facility] LABORATORY [address] [id number] , ,[place] [address] REASON FOR VISIT incomplete emptying splitting of urinary stream MEDICAL (GENERAL) HISTORY Type Description Date Medical History Seasonal Allergies Medical History GERD Medical History Anxiety Medical History Asthma Medical History Urethral Stricture Medical History Optical Migraines Medical History sleep apnea Surgical History Broken Nose Repair Goals Section No Information Health Concerns No Information MEDICAL EQUIPMENT No Information MENTAL STATUS No Information FUNCTIONAL STATUS No Information ASSESSMENTS Encounter Date Diagnosis Assessment Notes Treatment Notes Treatm ent Clinical Notes Oct, Urine stream spraying (ICD-10 - R39.198) - send urine for UA and urine culture - cystoscopy recommended to evaluate urinary symptoms - patient will consider and call us back - might opt to do this in the OR - start cialis for ED - stop viagra - f/u in 6 wks Oct, Erectile dysfunction (ICD-10 - N52.9) PLAN OF TREATMENT Medication Medication Name Sig Start Date Stop Date Cialis 10 MG 1 tablet Orally Once a day as needed Oct, Treatment Notes Assessment Notes Clinical Notes Urine stream spraying - send urine for U A and urine culture- cystoscopy recommended to evaluate urinary symptoms - patient will consider and call us back - might opt to do this in the OR- start cialis for ED - stop viagra- f/u in 6 wks Next Appt Details 6 Weeks Reason:ED Provider Name:Kenneth Colin, 08:15:00 AM, [address], , [place], [address], Follow Up:6 WeeksED Insurance Providers Payer Name Payer Address Payer Phone Insured Name Patient Relati onship to Insured Coverage Start Date Coverage End Date [employer] [address] [facility] [id number] Jaya Jensen J
[2021-02-15] MEDS ORDERED: MIDAZOLAM INJ 2MG/2ML VIAL (J2250 PER 1MG) As Ordered ONE (06:53)
[2021-02-15] MEDS ORDERED: LIDOCAINE 2% 100MG/5ML SDV (FOR ANES.) As Ordered ONE (06:54)
[2021-02-15] MEDS ORDERED: ACETAMINOPHEN 1000MG 100ML IV BTL (OFIRMEV) (J0131 PER 10MG) As Ordered ONE (06:54)
[2021-02-15] MEDS ORDERED: dexameTHASONE 4 MG/ML 1ML VIAL (J1100 PER 1MG) As Ordered ONE (06:54)
[2021-02-15] MEDS ORDERED: ONDANSETRON 4MG/2ML VIAL As Ordered ONE (06:54)
[2021-02-15] MEDS ORDERED: propofoL 200 MG/20 ML VIAL As Ordered ONE (06:54)
[2021-02-15] MEDS ORDERED: LIDOCAINE 2% 5ML JELLY UROJET As Ordered ONE (07:20)
[2021-02-15] MEDS ORDERED: fentaNYL 100 MCG/2 ML INJECTION (J3010) As Ordered ONE (07:28)
[2021-02-15 08:25] VITALS: BP 133/72
[2021-02-15] MEDS ORDERED: PERCOCET 5MG/325MG TAB PO PRN (08:35)
[2021-02-15] MEDS ORDERED: fentaNYL 100 MCG/2 ML INJECTION (J3010) IV PRN (08:35)
[2021-02-15] MEDS ORDERED: LR 1,000 ML IV SCH (08:35)
--- NOTE | 2021-02-15 09:17 | RO ---
OPERATIVE NOTE DATE OF OPERATION: 02/15/2021 PREOPERATIVE DIAGNOSIS: Spraying of urinary stream. POSTOPERATIVE DIAGNOSIS: Spraying of urinary stream. PROCEDURE: Cystoscopy. SURGEON: Kenneth Colin MD CENTRAL SUPPLY NURSE: None. ANESTHESIA: MAC. OPERATIVE INDICATIONS: This is a 25-year-old male who has been having some spraying of his urinary stream who presented for workup. He is brought to the operating room today for cystoscopy. DESCRIPTION OF PROCEDURE: The patient was brought to the operating room and MAC anesthesia was administered. Prophylactic antibiotics were infused. He was placed in the dorsal lithotomy position and prepped and draped in usual sterile fashion. A rigid cystoscope was inserted in the urethral meatus and advanced into the bladder. The bladder was thoroughly examined and there were no abnormalities. The cystoscope was withdrawn and of note the prostatic urethra was unremarkable. There were no urethral strictures. The urethra was widely patent and there were no abnormalities seen. Once the cystoscope was removed this marked the conclusion of the procedure. The patient was awakened from anesthesia and transported to the recovery room in stable condition. ESTIMATED BLOOD LOSS: 5 mL . COMPLICATIONS: None. SPECIMEN: None. PLAN: The patient will follow up in urology clinic in a few weeks for a postoperative visit. Of note, no anatomic abnormalities were seen that would explain the spraying of his urinary stream. ANTONIO
== END 2021-02-15 09:07 | disposition home or self-care (01) ==
LOC: M SDC 06:01
PROVIDERS: ATTEND Urology
DX: R39.198 Other difficulties with micturition (principal); N52.9 Male erectile dysfunction, unspecified; K21.9 Gastro-esophageal reflux disease without esophagitis; G47.33 Obstructive sleep apnea (adult) (pediatric); G43.909 Migraine, unspecified, not intractable, without status migrainosus; J45.909 Unspecified asthma, uncomplicated; F17.290 Nicotine dependence, other tobacco product, uncomplicated; Z88.0 Allergy status to penicillin
CPT/HCPCS: 52000; J1100; J1956; J2250; J2405; J3010

== ENCOUNTER → 2021-04-12 | Outpatient (REF) | payer OTHER | LOC: M LAB REF 17:18 | PROVIDERS: ATTEND Physician Assistant | DX: J06.9 Acute upper respiratory infection, unspecified (principal) ==

== ENCOUNTER → 2023-05-30 | Outpatient (CLI) | payer BC ==
[2023-05-30 13:08] LABS: BASO % 0.4 % (0.0-1.0); EOS # 0.2 10^3/uL (0.0-0.5); EOS % 3.9 % (0.0-3.0); HEMOGLOBIN 14.4 g/dl (13.5-17.5); LYMPH # 1.9 10^3/uL (1.5-5.0); MEAN CORPUSCULAR HEMOGLOBIN 30.5 pg (27.0-33.0); MEAN CORPUSCULAR HGB CONC 33.5 g/dl (32.0-36.5); MEAN CORPUSCULAR VOLUME 91.1 fl (80.0-96.0); MONO # 0.4 10^3/uL (0.0-0.8); MONO % 9.4 % (2.0-8.0); NEUTROPHILS # 2.1 10^3/uL (1.5-8.5); NEUTROPHILS % 45.1 % (36.0-66.0); PLATELET COUNT, AUTOMATED 211 10^3/uL (150-450); RED BLOOD COUNT 4.72 10^6/uL (4.30-6.10); WHITE BLOOD COUNT 4.6 10^3/uL (4.0-10.0)
[2023-05-30 13:27] LABS: HEMOGLOBIN A1c 4.9 % (4.0-6.0)
[2023-05-30 13:35] LABS: THYROID STIMULATING HORMONE 1.714 uIU/ML (0.55-4.78)
[2023-05-30 13:36] LABS: FERRITIN 134.7 NG/ML (10.5-307.3)
[2023-05-30 13:37] LABS: TOTAL 25(OH) VITAMIN D 38.9 NG/ML (20.0-100.0); TOTAL IRON BINDING CAPACITY 310 UG/DL (250-425)
[2023-05-30 13:38] LABS: ALBUMIN 4.7 G/DL (3.2-5.2); ALKALINE PHOSPHATASE 73 U/L (46-116); ALT/SGPT 22 U/L (7.0-40); AST/SGOT 14 U/L (<34); BILIRUBIN,TOTAL 0.7 MG/DL (0.3-1.2); BLOOD UREA NITROGEN 21 MG/DL (9-23); CALCIUM LEVEL 9.6 MG/DL (8.5-10.1); CARBON DIOXIDE LEVEL 29 MMOL/L (20-31); CHLORIDE LEVEL 104 MMOL/L (98-107); CHOLESTEROL LEVEL 231 MG/DL (<200); CREATININE FOR GFR 0.97 MG/DL (0.70-1.30); FOLATE > 24.0 NG/ML (>5.4); GLOMERULAR FILTRATION RATE > 60.0 (>60); GLUCOSE, FASTING 83 MG/DL (60-100); IRON (FE) 78 UG/DL (65-175); LDL CHOLESTEROL 146.4 MG/DL (<100); PERCENT SATURATION 25.2 % (19.7-50.0); POTASSIUM SERUM 4.9 MMOL/L (3.5-5.1); SODIUM LEVEL 138 MMOL/L (136-145); TOTAL PROTEIN 7.2 G/DL (5.7-8.2); TRIGLYCERIDES LEVEL 73 MG/DL (<150); VITAMIN B12 LEVEL 321 PG/ML (211-911)
[2023-05-30 13:39] LABS: FREE T4 1.11 NG/DL (0.89-1.76)
== END ==
LOC: M PLALAB 09:32
PROVIDERS: ATTEND Physician Assistant
DX: Z13.29 Encounter for screening for other suspected endocrine disorder (principal); Z13.220 Encounter for screening for lipoid disorders; E55.9 Vitamin D deficiency, unspecified